=== PATIENT | male | born 1960 | race Caucasian/White ===

== ENCOUNTER 2020-09-21 07:30 | Outpatient (CLI) | payer OTHER ==
[2020-09-21 14:44] LABS: BASOPHILS # (AUTO) 0.1 10^3/uL (0.0-0.1); BASOPHILS % (AUTO) 1.2 %; EOSINOPHILS # (AUTO) 0.2 10^3/uL (0.0-0.7); EOSINOPHILS % (AUTO) 4.1 %; HCT - HEMATOCRIT 45.4 % (42.0-52.0); HGB - HEMOGLOBIN 14.9 g/dL (14.0-18.0); LYMPHOCYTES # (AUTO) 1.6 10^3/uL (1.5-3.5); LYMPHOCYTES % (AUTO) 26.4 %; MEAN CORPUSCULAR HEMOGLOBIN 30.4 pg (27.0-31.0); MEAN CORPUSCULAR HGB CONC 32.8 g/dL (32.0-36.0); MEAN CORPUSCULAR VOLUME 92.7 fL (80.0-94.0); MEAN PLATELET VOLUME 10.6 fL (7.4-11.4); MONOCYTES # (AUTO) 0.7 10^3/uL (0.0-1.0); MONOCYTES % (AUTO) 11.5 %; NEUTROPHILS # (AUTO) 3.4 10^3/uL (1.5-6.6); NEUTROPHILS % (AUTO) 56.5 %; PLT - PLATELET COUNT 236 10^3/uL (130-450); RED CELL DISTRIBUTION WIDTH 14.3 % (12.0-15.0); WHITE BLOOD COUNT 5.9 x10^3/uL (4.8-10.8)
[2020-09-21 15:35] LABS: ALBUMIN 4.4 g/dL (3.2-5.5); ALBUMIN/GLOBULIN RATIO 1.6 (1.0-2.2); ALKALINE PHOSPHATASE 54 IU/L (42-121); ALT ALANINE AMINOTRANSFERASE 54 IU/L (10-60); AST ASPARTATE AMINOTRANSFERASE 32 IU/L (10-42); BILIRUBIN,TOTAL 0.5 mg/dL (0.2-1.0); BUN - BLOOD UREA NITROGEN 20 mg/dL (6-20); CALCIUM 9.7 mg/dL (8.5-10.3); CARBON DIOXIDE - CO2 26 mmol/L (21-32); CHLORIDE 105 mmol/L (101-111); CHOL/HDL RATIO 2.5 (<5.0); CHOLESTEROL 181 mg/dL; CREATININE 0.8 mg/dL (0.6-1.2); GFR - MDRD 99 (>89); GLUCOSE 106 mg/dL (70-100); HDL CHOLESTEROL 73 mg/dL; LDL CHOLESTEROL,CALCULATED 94 mg/dL; LDL/HDL RATIO 1.3 (<3.6); POTASSIUM 4.6 mmol/L (3.5-5.0); SODIUM 141 mmol/L (135-145); TOTAL PROTEIN 7.1 g/dL (6.7-8.2); TRIGLYCERIDES 69 mg/dL; VLDL CHOLESTEROL 14 mg/dL
== END 2020-09-21 07:31 | disposition home or self-care (01) ==
LOC: LAB.S 07:30
PROVIDERS: ATTEND Internal Medicine
DX: Z00.00 Encounter for general adult medical examination without abnormal findings (principal); Z12.5 Encounter for screening for malignant neoplasm of prostate
CPT/HCPCS: 36415; 80053; 80061; 83721; 84153; 85025

== ENCOUNTER 2020-11-10 18:25 | Outpatient (CLI) | payer OTHER | END 2020-11-10 18:26 | disposition critical access hospital (66) | LOC: EMS 18:25 | DX: R55 Syncope and collapse (principal); R11.2 Nausea with vomiting, unspecified | CPT/HCPCS: A0425; A0427 ==

== ENCOUNTER 2020-11-10 18:50 | Emergency (ER) | payer OTHER ==
[2020-11-10 19:26] LABS: BASOPHILS # (AUTO) 0.1 10^3/uL (0.0-0.1); BASOPHILS % (AUTO) 0.4 %; EOSINOPHILS # (AUTO) 0.1 10^3/uL (0.0-0.7); EOSINOPHILS % (AUTO) 0.4 %; HCT - HEMATOCRIT 45.3 % (42.0-52.0); HGB - HEMOGLOBIN 15.1 g/dL (14.0-18.0); LYMPHOCYTES # (AUTO) 0.6 10^3/uL (1.5-3.5); LYMPHOCYTES % (AUTO) 4.8 %; MEAN CORPUSCULAR HEMOGLOBIN 30.9 pg (27.0-31.0); MEAN CORPUSCULAR HGB CONC 33.3 g/dL (32.0-36.0); MEAN CORPUSCULAR VOLUME 92.8 fL (80.0-94.0); MEAN PLATELET VOLUME 9.6 fL (7.4-11.4); MONOCYTES # (AUTO) 0.9 10^3/uL (0.0-1.0); NEUTROPHILS % (AUTO) 86.1 %; PLT - PLATELET COUNT 225 10^3/uL (130-450); RED BLOOD COUNT 4.88 10^6/uL (4.70-6.10); RED CELL DISTRIBUTION WIDTH 14.5 % (12.0-15.0); WHITE BLOOD COUNT 11.6 x10^3/uL (4.8-10.8)
--- NOTE | 2020-11-10 19:29 | XRAY Report ---
PROCEDURE: Chest 1 View X-Ray INDICATIONS: Chest Pain TECHNIQUE: One view of the chest was acquired. COMPARISON: None. FINDINGS: Surgical changes and devices: None. Lungs and pleura: No pleural effusions or pneumothorax. Lungs are clear. Mediastinum: Mediastinal contours appear normal. Heart size is normal. Bones and chest wall: No suspicious bony lesions. Overlying soft tissues appear unremarkable. IMPRESSION: No acute cardiopulmonary disease. Reviewed by: Sushila Gil MD on 11/10/2020 7:27 PM PDT Approved by: Sushila Gil MD on 11/10/2020 7:27 PM PDT Station ID: [id number]
[2020-11-10 19:42] LABS: ALBUMIN 4.2 g/dL (3.2-5.5); ALBUMIN/GLOBULIN RATIO 1.5 (1.0-2.2); BILIRUBIN,TOTAL 0.7 mg/dL (0.2-1.0); CREATININE 1.1 mg/dL (0.6-1.2); POTASSIUM 3.6 mmol/L (3.5-5.0)
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
[2020-11-10 20:38] VITALS: BP 115/73
--- NOTE | 2020-11-11 05:41 | ED Physician Documentation ---
PD HPI SYNCOPE - Stated complaint Stated Complaint: SYNCOPE - Chief complaint Chief Complaint: Allergic Rx - History obtained from History obtained from: Patient - History of Present Illness Witnessed: Witnessed Timing - onset: Enter time (17:00) Duration: Seconds Preceding symptoms: Diaphoresis, Light headed Injury occurred: None. No: Fell Pain level max: 0 Pain level now: 0 Recently seen: Clinic - Additional information Additional information: BIBA for syncope. Patient was prescribed amoxicillin by PMD for sinusitis, took first dose at 2 PM today. approximately 2-3 hours later, he felt flushed, diaphoretic, lightheaded, developed nausea and vomiting. He then had brief syncope, estimates he was unconscious for "a few seconds" (per patient), but did not fall to ground and thus no injury. He was given IV fluids and zofran en route by EMS and feels much improved by the time of this evaluation. Review of Systems Constitutional: reports: Sweats. denies: Fever, Chills Nose: reports: Congestion, Sinus pressure / pain Throat: denies: Sore throat Cardiac: reports: Reviewed and negative Respiratory: reports: Reviewed and negative GI: reports: Nausea, Vomiting. denies: Abdominal Pain : denies: Dysuria, Frequency, Incontinent Musculoskeletal: reports: Reviewed and negative Neurologic: reports: Syncope. denies: Focal weakness, Numbness, Headache, Head injury PD PAST MEDICAL HISTORY - Past Medical History Cardiovascular: Hypertension, High cholesterol - Present Medications Home Medications: Ambulatory Orders Medication Instructions Recorded Confirmed Lisinopril [Zestril] 1 tab PO DAILY 11/10/20 11/10/20 Rosuvastatin Calcium [Ezallor 1 tab PO DAILY 11/10/20 11/10/20 Sprinkle] Tamsulosin [Flomax] 1 tab PO DAILY 11/10/20 11/10/20 - Allergies Allergies/Adverse Reactions: Allergies Allergy/AdvReac Type Severity Reaction Status Date / Time amoxicillin Allergy Diaphoresis Verified 11/10/20 19:13 - Social History Does the pt smoke?: No Smoking Status: Never smoker Does the pt drink ETOH?: Yes Does the pt have substance abuse?: No PD ED PE NORMAL - Vitals Vital signs reviewed: Yes - General General: Alert and oriented X 3, No acute distress, Well developed/nourished - HEENT HEENT: PERRL, EOMI, Moist mucous membranes - Neck Neck: Supple, no meningeal sign - Cardiac Cardiac: RRR, No murmur, No gallop, No rub - Respiratory Respiratory: No respiratory distress, Clear bilaterally - Abdomen Abdomen: Soft, Non tender - Derm Derm: Normal color, Warm and dry - Extremities Extremities: No edema - Neuro Neuro: Alert and oriented X 3, shade matcher 2-12 intact, No motor deficit, No sensory deficit, Normal speech Eye Opening: Spontaneous Motor: Obeys Commands Verbal: Oriented GCS Score: 15 - Psych Psych: Normal mood, Normal affect Results - Vitals Vitals: Vital Signs - 24 hr 11/10/20 11/10/20 11/10/20 18:51 19:32 20:37 Temperature 35.9 C L 97.5 C H 36.4 C L Heart Rate 75 77 72 Respiratory 18 18 18 Rate Blood Pressure 96/70 111/74 115/73 O2 Saturation 94 97 99 Oxygen O2 Source Room air - EKG (time done) No standard instances Rate: Rate (enter#) (71) Rhythm: NSR [place]: LAD Intervals: Normal DE QRS: Normal Ischemia: Normal ST segments, Q waves (III, aVF) - Labs Labs: Laboratory Tests 11/10/20 11/10/20 11/10/20 19:22 19:22 19:22 WBC 11.6 H RBC 4.88 Hgb 15.1 Hct 45.3 MCV 92.8 MCH 30.9 MCHC 33.3 RDW 14.5 Plt Count 225 MPV 9.6 Neut # (Auto) 10.0 H Lymph # (Auto) 0.6 L [place] # (Auto) 0.9 Eos # (Auto) 0.1 Baso # (Auto) 0.1 Absolute Nucleated RBC 0.00 Nucleated RBC % 0.0 Sodium 140 Potassium 3.6 Chloride 105 Carbon Dioxide 22 Anion Gap 13.0 BUN 21 H Creatinine 1.1 Estimated GFR (MDRD) 68 L Glucose 120 H Calcium 9.0 Total Bilirubin 0.7 AST 28 ALT 41 Alkaline Phosphatase 55 Troponin I High Sens B-Natriuretic Peptide 36 Total Protein 7.0 Albumin 4.2 Globulin 2.8 Albumin/Globulin Ratio 1.5 Lipase 27 11/10/20 19:22 WBC RBC Hgb Hct MCV MCH MCHC RDW Plt Count MPV Neut # (Auto) Lymph # (Auto) [place] # (Auto) Eos # (Auto) Baso # (Auto) Absolute Nucleated RBC Nucleated RBC % Sodium Potassium Chloride Carbon Dioxide Anion Gap BUN Creatinine Estimated GFR (MDRD) Glucose Calcium Total Bilirubin AST ALT Alkaline Phosphatase Troponin I High Sens 4.9 B-Natriuretic Peptide Total Protein Albumin Globulin Albumin/Globulin Ratio Lipase - Rads (name of study) cxr Radiology: Prelim report reviewed, See rad report PD MEDICAL DECISION MAKING - ED course Complexity details: reviewed results, re-evaluated patient, considered di fferential, d/w patient ED course: test results reassuring and nondiagnostic; reviewed results with patient. he feels well/asymptomatic, is comfortable with d/c home. We discussed option for different antibiotic for sinusitis, but patient wants to hold off on any replacement antibiotic until he speaks with his PMD this coming week. He will not take the amoxicillin any more Departure - Departure Disposition: 01 Home, Self Care Clinical Impression: Syncope Qualifiers: Syncope type: unspecified Qualified Code(s): R55 - Syncope and collapse Condition: Good Instructions: ED Syncope Vasovagal Follow-Up: Charles Manley MD [Primary Care Provider] - Discharge Date/Time: 11/10/20 20:37
== END 2020-11-10 20:37 | disposition home or self-care (01) ==
LOC: EDUNIT# → SUPCPDRO 18:50 → ED 18:50
DX: R55 Syncope and collapse (principal); R11.2 Nausea with vomiting, unspecified; J32.9 Chronic sinusitis, unspecified; Z88.0 Allergy status to penicillin; I10 Essential (primary) hypertension
CPT/HCPCS: 36415; 80053; 83690; 83880; 84484; 85025; 93005; 99284

== ENCOUNTER 2021-02-07 08:00 | Outpatient (CLI) | payer OTHER ==
[2021-02-07 16:07] LABS: FECAL OCCULT BLOOD (FIT) NEGATIVE (NEGATIVE)
== END 2021-02-07 23:59 | disposition home or self-care (01) ==
LOC: LAB.S 08:00
PROVIDERS: ATTEND Physician Assistant
DX: R19.7 Diarrhea, unspecified (principal)
CPT/HCPCS: 81599; 82274; 87045; 87427; 87449; 87493

== ENCOUNTER 2021-03-18 08:55 | Outpatient (CLI) | payer OTHER ==
[2021-03-18 14:11] LABS: BASOPHILS # (AUTO) 0.1 10^3/uL (0.0-0.1); EOSINOPHILS # (AUTO) 0.2 10^3/uL (0.0-0.7); EOSINOPHILS % (AUTO) 3.3 %; HCT - HEMATOCRIT 46.4 % (42.0-52.0); HGB - HEMOGLOBIN 15.1 g/dL (14.0-18.0); LYMPHOCYTES # (AUTO) 1.9 10^3/uL (1.5-3.5); LYMPHOCYTES % (AUTO) 25.7 %; MEAN CORPUSCULAR HEMOGLOBIN 30.3 pg (27.0-31.0); MEAN CORPUSCULAR HGB CONC 32.5 g/dL (32.0-36.0); MEAN PLATELET VOLUME 10.6 fL (7.4-11.4); MONOCYTES # (AUTO) 0.8 10^3/uL (0.0-1.0); MONOCYTES % (AUTO) 10.9 %; NEUTROPHILS # (AUTO) 4.3 10^3/uL (1.5-6.6); NEUTROPHILS % (AUTO) 58.7 %; PLT - PLATELET COUNT 249 10^3/uL (130-450); RED BLOOD COUNT 4.99 10^6/uL (4.70-6.10); RED CELL DISTRIBUTION WIDTH 13.8 % (12.0-15.0); WHITE BLOOD COUNT 7.3 x10^3/uL (4.8-10.8)
[2021-03-18 15:00] LABS: ALBUMIN 4.5 g/dL (3.2-5.5); ALBUMIN/GLOBULIN RATIO 1.7 (1.0-2.2); ALKALINE PHOSPHATASE 51 IU/L (42-121); ALT ALANINE AMINOTRANSFERASE 45 IU/L (10-60); AST ASPARTATE AMINOTRANSFERASE 26 IU/L (10-42); BILIRUBIN,TOTAL 1.1 mg/dL (0.2-1.0); BUN - BLOOD UREA NITROGEN 22 mg/dL (6-20); CALCIUM 9.7 mg/dL (8.5-10.3); CARBON DIOXIDE - CO2 28 mmol/L (21-32); CHLORIDE 100 mmol/L (101-111); CHOL/HDL RATIO 2.8 (<5.0); CHOLESTEROL 193 mg/dL; CREATININE 0.9 mg/dL (0.6-1.2); GFR - MDRD 86 (>89); GLUCOSE 108 mg/dL (70-100); HDL CHOLESTEROL 69 mg/dL; LDL CHOLESTEROL,CALCULATED 109 mg/dL; LDL/HDL RATIO 1.6 (<3.6); POTASSIUM 4.3 mmol/L (3.5-5.0); SODIUM 136 mmol/L (135-145); TOTAL PROTEIN 7.2 g/dL (6.7-8.2); TRIGLYCERIDES 76 mg/dL; VLDL CHOLESTEROL 15 mg/dL
== END 2021-03-18 08:56 | disposition home or self-care (01) ==
LOC: LAB.S 08:55
PROVIDERS: ATTEND Internal Medicine
DX: I10 Essential (primary) hypertension (principal)
CPT/HCPCS: 36415; 80053; 80061; 83721; 85025

== ENCOUNTER 2021-06-24 07:35 | Outpatient (CLI) | payer OTHER ==
[2021-06-24 14:30] LABS: BASOPHILS # (AUTO) 0.1 10^3/uL (0.0-0.1); BASOPHILS % (AUTO) 1.5 %; EOSINOPHILS # (AUTO) 0.5 10^3/uL (0.0-0.7); EOSINOPHILS % (AUTO) 7.6 %; HGB - HEMOGLOBIN 15.1 g/dL (14.0-18.0); LYMPHOCYTES # (AUTO) 1.7 10^3/uL (1.5-3.5); LYMPHOCYTES % (AUTO) 23.7 %; MEAN CORPUSCULAR HEMOGLOBIN 29.9 pg (27.0-31.0); MEAN CORPUSCULAR HGB CONC 32.8 g/dL (32.0-36.0); MEAN CORPUSCULAR VOLUME 91.1 fL (80.0-94.0); MONOCYTES # (AUTO) 0.8 10^3/uL (0.0-1.0); MONOCYTES % (AUTO) 10.8 %; PLT - PLATELET COUNT 239 10^3/uL (130-450); RED BLOOD COUNT 5.05 10^6/uL (4.70-6.10); RED CELL DISTRIBUTION WIDTH 14.1 % (12.0-15.0); WHITE BLOOD COUNT 7.1 x10^3/uL (4.8-10.8)
[2021-06-24 15:18] LABS: ALBUMIN 4.3 g/dL (3.2-5.5); ALBUMIN/GLOBULIN RATIO 1.4 (1.0-2.2); ALKALINE PHOSPHATASE 54 IU/L (42-121); ALT ALANINE AMINOTRANSFERASE 48 IU/L (10-60); AST ASPARTATE AMINOTRANSFERASE 31 IU/L (10-42); BILIRUBIN,TOTAL 0.9 mg/dL (0.2-1.0); BUN - BLOOD UREA NITROGEN 16 mg/dL (6-20); CALCIUM 9.5 mg/dL (8.5-10.3); CARBON DIOXIDE - CO2 26 mmol/L (21-32); CHLORIDE 98 mmol/L (101-111); CHOL/HDL RATIO 2.7 (<5.0); CHOLESTEROL 187 mg/dL; CREATININE 0.8 mg/dL (0.6-1.2); GFR - MDRD 98 (>89); GLUCOSE 116 mg/dL (70-100); HDL CHOLESTEROL 69 mg/dL; LDL CHOLESTEROL,CALCULATED 95 mg/dL; LDL/HDL RATIO 1.4 (<3.6); POTASSIUM 4.3 mmol/L (3.5-5.0); SODIUM 134 mmol/L (135-145); TOTAL PROTEIN 7.3 g/dL (6.7-8.2); TRIGLYCERIDES 114 mg/dL; VLDL CHOLESTEROL 23 mg/dL
== END 2021-06-24 07:36 | disposition home or self-care (01) ==
LOC: LAB.S 07:35
PROVIDERS: ATTEND Internal Medicine
DX: I10 Essential (primary) hypertension (principal); Z12.5 Encounter for screening for malignant neoplasm of prostate
CPT/HCPCS: 36415; 80053; 80061; 83721; 84153; 85025

== ENCOUNTER 2022-05-19 07:18 | Outpatient (CLI) | payer OTHER ==
[2022-05-19 13:53] LABS: BASOPHILS # (AUTO) 0.1 10^3/uL (0.0-0.1); EOSINOPHILS # (AUTO) 0.3 10^3/uL (0.0-0.7); EOSINOPHILS % (AUTO) 4.2 %; HCT - HEMATOCRIT 46.8 % (42.0-52.0); LYMPHOCYTES # (AUTO) 2.2 10^3/uL (1.5-3.5); LYMPHOCYTES % (AUTO) 27.6 %; MEAN CORPUSCULAR HEMOGLOBIN 29.5 pg (27.0-31.0); MEAN CORPUSCULAR HGB CONC 32.1 g/dL (32.0-36.0); MEAN CORPUSCULAR VOLUME 92.1 fL (80.0-94.0); MEAN PLATELET VOLUME 10.5 fL (7.4-11.4); MONOCYTES # (AUTO) 0.8 10^3/uL (0.0-1.0); MONOCYTES % (AUTO) 9.4 %; NEUTROPHILS # (AUTO) 4.6 10^3/uL (1.5-6.6); NEUTROPHILS % (AUTO) 57.4 %; PLT - PLATELET COUNT 255 10^3/uL (130-450); RED BLOOD COUNT 5.08 10^6/uL (4.70-6.10); RED CELL DISTRIBUTION WIDTH 14.1 % (12.0-15.0); WHITE BLOOD COUNT 8.1 x10^3/uL (4.8-10.8)
[2022-05-19 14:01] LABS: ALBUMIN 4.1 g/dL (3.2-5.5); ALBUMIN/GLOBULIN RATIO 1.4 (1.0-2.2); ALKALINE PHOSPHATASE 56 IU/L (42-121); ALT ALANINE AMINOTRANSFERASE 42 IU/L (10-60); AST ASPARTATE AMINOTRANSFERASE 25 IU/L (10-42); BILIRUBIN,TOTAL 0.7 mg/dL (0.2-1.0); BUN - BLOOD UREA NITROGEN 23 mg/dL (6-20); CALCIUM 9.5 mg/dL (8.5-10.3); CARBON DIOXIDE - CO2 28 mmol/L (21-32); CHLORIDE 100 mmol/L (101-111); CHOL/HDL RATIO 2.6 (<5.0); CHOLESTEROL 166 mg/dL; CREATININE 0.9 mg/dL (0.6-1.2); GFR - MDRD 86 (>89); GLUCOSE 120 mg/dL (70-100); HDL CHOLESTEROL 63 mg/dL; LDL CHOLESTEROL,CALCULATED 83 mg/dL; LDL/HDL RATIO 1.3 (<3.6); POTASSIUM 4.3 mmol/L (3.5-5.0); SODIUM 136 mmol/L (135-145); TOTAL PROTEIN 7.1 g/dL (6.7-8.2); TRIGLYCERIDES 100 mg/dL; VLDL CHOLESTEROL 20 mg/dL
[2022-05-19 14:12] LABS: THYROID STIMULATING HORMONE 4.49 uIU/mL (0.34-5.60)
== END 2022-05-19 07:19 | disposition home or self-care (01) ==
LOC: LAB.S 07:18
PROVIDERS: ATTEND Physician Assistant
DX: I10 Essential (primary) hypertension (principal); E78.5 Hyperlipidemia, unspecified; Z12.5 Encounter for screening for malignant neoplasm of prostate
CPT/HCPCS: 36415; 80053; 80061; 83721; 84153; 84443; 85025

== ENCOUNTER 2022-07-03 07:53 | Outpatient (CLI) | payer OTHER ==
--- NOTE | 2022-07-03 10:02 | MRI Report ---
PROCEDURE: BRAIN WO INDICATIONS: CLUSTER HEADACHE TECHNIQUE: Noncontrast axial T1 spin echo, axial T2 fast spin echo, sagittal and axial FLAIR, coronal T2 fast sp in echo, axial gradient echo, axial diffusion and ADC through the brain. COMPARISON: None. FINDINGS: Image quality: Excellent. CSF Spaces: Basal cisterns are patent. No extra-axial fluid collections. Ventricles are normal in size and shape. Brain: No intracranial masses or hemorrhage. Simpson/white matter interface is normal. There is mild diffuse cerebral volume loss. Minimal degree of patchy high FLAIR signal within the periventricular w randall matter. Brainstem appears normal. Diffusion-weighted images demonstrate no acute ischemic insul t. No chronic ischemic insults. Normal intravascular flow voids are present. Skull and face: Calvarium has normal marrow signal. Orbits appear normal. Sinuses: There is near complete opacification of the right frontal sinus. Mild bilateral maxillary si nus mucosal thickening. IMPRESSION: 1. Mild volume loss. Minimal small vessel disease. 2. Sinus disease. 3. No acute process. No recent infarct. Reviewed by: Jacquelin Perkins MD on 07/03/2022 10:00 AM [facility] Approved by: Jacquelin Perkins MD on 07/03/2022 10:00 AM [facility] Station ID: [id number]
== END 2022-07-03 07:54 | disposition home or self-care (01) ==
LOC: DI 07:53
PROVIDERS: ATTEND Physician Assistant
DX: G44.009 Cluster headache syndrome, unspecified, not intractable (principal); G31.89 Other specified degenerative diseases of nervous system; I67.89 Other cerebrovascular disease

== ENCOUNTER 2022-10-05 08:35 | Emergency (ER) | payer OTHER ==
[2022-10-05] MEDS ORDERED: ONDANSETRON 4 MG/2 ML VIAL IVP STA (08:51)
[2022-10-05] MEDS ORDERED: SODIUM CHLORIDE 0.9% 1,000 ML IV STA (08:51)
[2022-10-05 09:21] LABS: BASOPHILS # (AUTO) 0.1 10^3/uL (0.0-0.1); BASOPHILS % (AUTO) 0.7 %; EOSINOPHILS # (AUTO) 0.1 10^3/uL (0.0-0.7); EOSINOPHILS % (AUTO) 1.6 %; HCT - HEMATOCRIT 41.6 % (42.0-52.0); HGB - HEMOGLOBIN 13.8 g/dL (14.0-18.0); LYMPHOCYTES # (AUTO) 1.3 10^3/uL (1.5-3.5); LYMPHOCYTES % (AUTO) 15.1 %; MEAN CORPUSCULAR HEMOGLOBIN 29.6 pg (27.0-31.0); MEAN CORPUSCULAR HGB CONC 33.2 g/dL (32.0-36.0); MEAN CORPUSCULAR VOLUME 89.1 fL (80.0-94.0); MEAN PLATELET VOLUME 9.9 fL (7.4-11.4); MONOCYTES % (AUTO) 11.5 %; NEUTROPHILS # (AUTO) 5.9 10^3/uL (1.5-6.6); NEUTROPHILS % (AUTO) 70.9 %; PLT - PLATELET COUNT 228 10^3/uL (130-450); RED BLOOD COUNT 4.67 10^6/uL (4.70-6.10); RED CELL DISTRIBUTION WIDTH 13.7 % (12.0-15.0); WHITE BLOOD COUNT 8.3 x10^3/uL (4.8-10.8)
--- NOTE | 2022-10-05 09:22 | CT Report ---
PROCEDURE: HEAD WO INDICATIONS: syncope, collapse, hit head TECHNIQUE: Noncontrast 4.5 mm thick angled axial sections acquired from the foramen magnum to the vertex. For r adiation dose reduction, the following was used: automated exposure control, adjustment of mA and/or kV according to patient size. COMPARISON: MRI brain 07/03/2022 FINDINGS: Image quality: Excellent. CSF spaces: Basal cisterns are patent. No extra-axial fluid collections. Ventricles are normal in size and shape. Brain: No midline shift. No intracranial masses or hemorrhage. Simpson-white matter interface is norm al. Skull and face: Calvarium and visualized facial bones are intact, without suspicious lesions. Sinuses: Visualized sinuses and mastoids are clear. IMPRESSION: 1. No acute intracranial process. Reviewed by: Elizabeth Haider MD on 10/05/2022 9:20 AM PDT Approved by: Elizabeth Haider MD on 10/05/2022 9:20 AM PDT Station ID: [id number]
[2022-10-05 09:35] LABS: ALBUMIN 4.1 g/dL (3.2-5.5); ALBUMIN/GLOBULIN RATIO 1.5 (1.0-2.2); BILIRUBIN,TOTAL 0.5 mg/dL (0.2-1.0); CALCIUM 9.3 mg/dL (8.5-10.3); CREATININE 0.9 mg/dL (0.6-1.2); POTASSIUM 4.3 mmol/L (3.5-5.0); TOTAL PROTEIN 6.8 g/dL (6.7-8.2)
--- NOTE | 2022-10-05 10:03 | ED Physician Documentation ---
History of Present Illness - Stated complaint Stated Complaint: GLF - Chief complaint Chief Complaint: Neuro - History obtained from History obtained from: Patient - Additonal information Additional information: The patient comes to the emergency department with chief complaint of left foot and ankle pain after a syncopal episode and fall last night. He states he got up around 1:00 this morning and had severe cramps in both of his thighs. He states he was trying to massage the cramps out but then became lightheaded and fainted, he believes because of the intensity of the cramping. The patient believes he hit his forehead on the door jam next to him. His was there and states she noticed that his left foot seem to be twisted into an odd position. 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 He states he went to bed feeling fairly fine, but was a bit tired. The patient states he has had syncopal episodes previously when he has had pain, once from a stomachache while on antibiotics and once from another time when he operated an excavator and developed severe leg cramps. The patient states his cramps feel fine now and that he really has not had any other complaints except that he is having pain, swelling, and bruising around his left ankle and also pain in the heel and ball of his left foot. He states it hurts enough that he is having difficulty bearing weight. He borrowed a pair of crutches from his neighbor to come here. No prior injury to the foot or ankle. No other complaints at this time. He is not anticoagulated. PD PAST MEDICAL HISTORY - Past Medical History Cardiovascular: Hypertension, High cholesterol - Present Medications Home Medications: Ambulatory Orders Medication Instructions Recorded Confirmed Lisinopril [Zestril] 1 tab PO DAILY 11/10/20 11/10/20 Rosuvastatin Calcium [Ezallor 1 tab PO DAILY 11/10/20 11/10/20 Sprinkle] Tamsulosin [Flomax] 1 tab PO DAILY 11/10/20 11/10/20 - Allergies Allergies/Adverse Reactions: Allergies Allergy/AdvReac Type Severity Reaction Status Date / Time amoxicillin Allergy Diaphoresis Verified 10/05/22 08:40 - Social History Does the pt smoke?: No Smoking Status: Never smoker Does the pt drink ETOH?: Yes Does the pt have substance abuse?: No PD ED PE NORMAL - Vitals Vital signs reviewed: Yes - General General: Alert and oriented X 3, No acute distress, Well developed/nourished - HEENT HEENT: PERRL, EOMI, Moist mucous membranes, Other (2.5 cm vertical abrasion patient's midline forehead without bony deformity or edema.) - Neck Neck: Supple, no meningeal sign, No bony TTP - Cardiac Cardiac: RRR, No murmur - Respiratory Respiratory: No respiratory distress, Clear bilaterally - Abdomen Abdomen: Soft, Non tender, Non distended - Derm Derm: Warm and dry, No rash, Other (Contusion over left ankle and foot as above.) - Extremities Extremities: No deformity, Other (Mild edema with moderate contusion surrounding left lateral malleolus and extending for about a 2.5 cm radius. Tenderness over talofibular ligament area. No deformity. Mild contusion over fourth toe dorsum without deformity or tenderness.) - Neuro Neuro: Alert and oriented X 3, No motor deficit, No sensory deficit - Psych Psych: Normal mood, Normal affect Results - Vitals Vitals: Oxygen O2 Source Room air - EKG (time done) 0850 EKG releavant findings:: EKG personally interpreted by author of this note. Relevant findings are: Rate: Rate (enter#) (89) Rhythm: NSR [place]: Normal Intervals: Normal RI Ischemia: Normal ST segments, Other (old infarct) Computer interpretation: Agree with computer - Labs Labs: Laboratory Tests 10/05/22 10/05/22 10/05/22 09:15 09:15 09:15 WBC 8.3 RBC 4.67 L Hgb 13.8 L Hct 41.6 L MCV 89.1 MCH 29.6 MCHC 33.2 RDW 13.7 Plt Count 228 MPV 9.9 Neut # (Auto) 5.9 Lymph # (Auto) 1.3 L [place] # (Auto) 1.0 Eos # (Auto) 0.1 Baso # (Auto) 0.1 Absolute Nucleated RBC 0.00 Nucleated RBC % 0.0 Sodium 135 Potassium 4.3 Chloride 101 Carbon Dioxide 25 Anion Gap 9.0 BUN 21 H Creatinine 0.9 Estimated GFR (MDRD) 86 L Glucose 109 H Calcium 9.3 Total Bilirubin 0.5 AST 26 ALT 38 Alkaline Phosphatase 47 Troponin I High Sens 3.4 Total Protein 6.8 Albumin 4.1 Globulin 2.7 Albumin/Globulin Ratio 1.5 Lipase 37 - Rads (name of study) CT head Relevant Findings:: Final report received, See rad report (nad) XR foot Relevant Findings:: Final report received, See rad report (neg) xr ankle Relevant Findings:: Final report received, See rad report (neg) PD Medical Decision Making - ED course Complexity details: reviewed results, re-evaluated patient, considered differential, d/w patient ED course: The patient was worked up with CT scan of the head, EKG, and labs. Head CT was negative by radiology interpretation. EKG was unremarkable for acute findings by my interpretation and patient was found to be in normal sinus rhythm. CBC and ER abdominal panel, as well as troponin, were ordered and reviewed by me, and unremarkable. Patient was sent for x-rays of the left ankle and foot, which were negative. The pt was fitted with crutches and an air splint. We have discussed symptomatic management at home, as well as the usual indications for return. Departure - Departure Disposition: 01 Home, Self Care Clinical Impression: Left ankle sprain Qualifiers: Encounter type: initial encounter Involved ligament of ankle: unspecified ligament Qualified Code(s): S93.402A - Sprain of unspecified ligament of left ankle, initial encounter Episode of syncope Qualifiers: Syncope type: unspecified Qualified Code(s): R55 - Syncope and collapse Closed head injury Qualifiers: Encounter type: initial encounter Qualified Code(s): S09.90XA - Unspecified injury of head, initial encounter Condition: Stable Instructions: ED Sprain Ankle W X Ray, ED Head Injury Closed, ED Syncope Vasovagal Comments: Your CT, x-rays, and labs all look good. You have likely sprained your ankle, and can use the splint and crutches as long as you need them. You may bear weight as tolerated, but as we have discussed, should avoid any strenuous or high impact activity on your left ankle, or any walking on uneven ground, until you can walk on regular flat ground without any pain. Please be sure you get plenty of water to drink With regard to your fainting episode. If you need to operate an excavator again, you should be sure you are hydrating well afterward and perhaps an blind stretching and massage to help prevent the cramps. Discharge Date/Time: 10/05/22 11:28
--- NOTE | 2022-10-05 10:22 | XRAY Report ---
PROCEDURE: Ankle 3 View LT INDICATIONS: fall/injury/pain/swelling TECHNIQUE: 3 views of the ankle were acquired. COMPARISON: CT foot 10/05/2022 FINDINGS: Bones: No fractures or dislocations. Ankle mortise is normally aligned. No suspicious bony lesions . Soft tissues: No tibiotalar joint effusion. Achilles tendon appears normal. IMPRESSION: No visualized acute fracture or dislocation. However, occult injury cannot be excluded. Recommend leonides rt interval imaging follow-up in 7-10 days as clinically indicated for additional evaluation. Reviewed by: Elizabeth Haider MD on 10/05/2022 10:20 AM PDT Approved by: Elizabeth Haider MD on 10/05/2022 10:20 AM PDT Station ID: [id number]
--- NOTE | 2022-10-05 10:22 | XRAY Report ---
PROCEDURE: Foot 3 View LT INDICATIONS: fall/injury/pain TECHNIQUE: 3 views of the foot were acquired. COMPARISON: X-ray ankle 10/15/2022 FINDINGS: Bones: No fractures or dislocations. No suspicious bony lesions. Soft tissues: No suspicious soft tissue calcifications or masses. IMPRESSION: No visualized acute fracture or dislocation. However, occult injury cannot be excluded. Recommend leonides rt interval imaging follow-up in 7-10 days as clinically indicated for additional evaluation. Reviewed by: Elizabeth Haider MD on 10/05/2022 10:21 AM PDT Approved by: Elizabeth Haider MD on 10/05/2022 10:21 AM PDT Station ID: [id number]
[2022-10-05 11:16] VITALS: BP 156/91
== END 2022-10-05 11:28 | disposition home or self-care (01) ==
LOC: ED 08:35
DX: S93.402A Sprain of unspecified ligament of left ankle, initial encounter (principal); S09.90XA Unspecified injury of head, initial encounter; W19.XXXA Unspecified fall, initial encounter
CPT/HCPCS: 36415; 80053; 83690; 84484; 85025; 93005; 96374; 99283

== ENCOUNTER 2023-03-12 08:47 | Outpatient (CLI) | payer OTHER ==
[2023-03-12 14:27] LABS: BASOPHILS # (AUTO) 0.1 10^3/uL (0.0-0.1); BASOPHILS % (AUTO) 1.1 %; EOSINOPHILS # (AUTO) 0.3 10^3/uL (0.0-0.7); EOSINOPHILS % (AUTO) 3.2 %; HCT - HEMATOCRIT 43.9 % (42.0-52.0); HGB - HEMOGLOBIN 14.1 g/dL (14.0-18.0); LYMPHOCYTES # (AUTO) 1.9 10^3/uL (1.5-3.5); LYMPHOCYTES % (AUTO) 23.5 %; MEAN CORPUSCULAR HEMOGLOBIN 29.6 pg (27.0-31.0); MEAN CORPUSCULAR HGB CONC 32.1 g/dL (32.0-36.0); MEAN PLATELET VOLUME 10.7 fL (7.4-11.4); MONOCYTES # (AUTO) 0.8 10^3/uL (0.0-1.0); MONOCYTES % (AUTO) 10.1 %; NEUTROPHILS % (AUTO) 61.7 %; PLT - PLATELET COUNT 253 10^3/uL (130-450); RED BLOOD COUNT 4.77 10^6/uL (4.70-6.10); RED CELL DISTRIBUTION WIDTH 14.6 % (12.0-15.0); WHITE BLOOD COUNT 8.1 x10^3/uL (4.8-10.8)
[2023-03-12 14:47] LABS: ALBUMIN 4.5 g/dL (3.2-5.5); ALKALINE PHOSPHATASE 49 IU/L (42-121); ALT ALANINE AMINOTRANSFERASE 33 IU/L (10-60); AST ASPARTATE AMINOTRANSFERASE 24 IU/L (10-42); BILIRUBIN,TOTAL 0.6 mg/dL (0.2-1.0); BUN - BLOOD UREA NITROGEN 24 mg/dL (6-20); CALCIUM 9.6 mg/dL (8.5-10.3); CARBON DIOXIDE - CO2 29 mmol/L (21-32); CHLORIDE 105 mmol/L (101-111); CHOL/HDL RATIO 2.2 (<5.0); CHOLESTEROL 167 mg/dL; CREATININE 0.9 mg/dL (0.6-1.3); GFR - MDRD 85 (>89); GLUCOSE 107 mg/dL (74-104); HDL CHOLESTEROL 76 mg/dL; LDL CHOLESTEROL,CALCULATED 77 mg/dL; POTASSIUM 4.7 mmol/L (3.5-4.5); SODIUM 139 mmol/L (135-145); TOTAL PROTEIN 6.7 g/dL (6.4-8.9); TRIGLYCERIDES 70 mg/dL (48-352); VLDL CHOLESTEROL 14 mg/dL
== END 2023-03-12 08:48 | disposition home or self-care (01) ==
LOC: LAB.S 08:47
PROVIDERS: ATTEND Physician Assistant
DX: I10 Essential (primary) hypertension (principal); E78.5 Hyperlipidemia, unspecified; Z12.5 Encounter for screening for malignant neoplasm of prostate
CPT/HCPCS: 36415; 80053; 80061; 83721; 84153; 85025

== ENCOUNTER 2023-03-26 07:41 | Day surgery (SDC) | payer OTHER ==
[~2023-03-26 07:41] MED LIST: GLYCOPYRROLATE 1 MG/5 ML VIAL ONE; PROPOFOL 500 MG/50 ML 500 MG/50 ML VIAL ONE
[2023-03-26] MEDS ORDERED: LACTATED RINGERS 1,000 ML IV ONE ×2 (08:01→09:31)
--- NOTE | 2023-03-26 08:58 | ANESTHESIA ---
Pre-Anesthesia VS, & Labs - Diagnosis screening - Procedure colonoscopy Vital Signs: Temp Pulse Resp BP Pulse Ox O2 Flow Rate 36.2 C L 61 14 137/88 H 97 03/26/23 08:13 03/26/23 08:13 03/26/23 08:13 03/26/23 08:13 03/26/23 08:13 Height: 5 ft 7 in Weight (kg): 89.6 kg Body Mass Index: 30.9 BMI Classification: Obese - NPO >8 hours - Lab Results Lab results reviewed: Yes Home Medications and Allergies Home Medications: Ambulatory Orders LORazepam [Ativan] 1 tab PO HS 03/25/23 Lisinopril [Zestril] 40 tab PO DAILY 11/10/20 Rosuvastatin Calcium [Ezallor Sprinkle] 1 tab PO DAILY 11/10/20 Tamsulosin [Flomax] 1 tab PO DAILY 11/10/20 LORazepam [Ativan] 1 tab PO HS 03/25/23 Allergies/Adverse Reactions: Allergies Allergy/AdvReac Type Severity Reaction Status Date / Time amoxicillin Allergy Diaphoresis Verified 03/25/23 13:10 Anes History & Medical History - Anesthetic History Anesthesia Complications: reports: No previous complications Family history of Anesthesia Complications: Denies Family history of Malignant Hyperthermia: Denies - Medical History Cardiovascular: reports: Hypertension, High cholesterol, Coronary artery disease Pulmonary: reports: None Gastrointestinal: reports: Colon polyps Musculoskeletal: reports: None Endocrine/Autoimmune: reports: None Skin: reports: None Smoking Status: Never smoker Psychosocial: reports: Alcohol - Surgical History General: reports: Colonoscopy Eyes Ears Nose Throat (EENT): reports: Tonsil/Adenoidectomy Exam General: Alert, Oriented x3, Cooperative Dental: WNL Mouth Openin Fingerbreadth Neck Mobility: Normal Mallampati classification: II Thyromental Distance: 4-6 cm Respiratory: Lungs clear Cardiovascular: Regular rate Plan Anesthesia Type: General, MAC Consent for Procedure(s) Verified and Reviewed: Yes Code Status: Attempt Resuscitation ASA classification: 2-Mild systemic disease Is this case an emergency?: No
[2023-03-26 09:44] VITALS: BP 112/70; O2SAT 94
--- NOTE | 2023-03-26 09:51 | ANESTHESIA POST OP EVALUATION ---
Anesthesia Post Eval - Post Anesthesia Eval Vitals: Last Vital Signs Temp 36.2 C L 03/26/23 09:31 Pulse 67 03/26/23 09:40 Resp 18 03/26/23 09:40 BP 112/70 03/26/23 09:40 Pulse Ox 94 03/26/23 09:40 O2 Flow Rate CV Function Including HR & BP: Stable Pain Control: Satisfactory Nausea & Vomiting: Negative Mental Status: Baseline Respiratory Status: Airway Patent Hydration Status: Satisfactory Anesthesia Complications: None
== END 2023-03-26 07:42 | disposition home or self-care (01) ==
LOC: SDS 07:41
PROVIDERS: ATTEND Surgery
DX: Z12.11 Encounter for screening for malignant neoplasm of colon (principal); K57.30 Diverticulosis of large intestine without perforation or abscess without bleeding; E66.9 Obesity, unspecified; Z86.010 Personal history of colon polyps; Z68.30 Body mass index [BMI] 30.0-30.9, adult
CPT/HCPCS: 45378; J7120

== ENCOUNTER 2023-08-05 16:01 | Outpatient (CLI) | payer OTHER ==
--- NOTE | 2023-08-05 16:56 | XRAY Report ---
PROCEDURE: Shoulder 2+V RT INDICATIONS: RIGHT SHOULDER PAIN TECHNIQUE: 3 views of the shoulder were acquired. COMPARISON: None. FINDINGS: Bones: Moderate acromioclavicular and mild to moderate glenohumeral degenerative changes. Soft tissues: No suspicious calcifications. IMPRESSION: Moderate acromioclavicular and mild to moderate glenohumeral degenerative changes. If there is high c oncern for further derangement, consider MRI evaluation. Reviewed by: Neo Quinn MD on 08/05/2023 4:54 PM PST Approved by: Neo Quinn MD on 08/05/2023 4:54 PM PST Station ID: [id number]
== END 2023-08-05 16:02 | disposition home or self-care (01) ==
LOC: DI 16:01
PROVIDERS: ATTEND Physician Assistant
DX: M19.011 Primary osteoarthritis, right shoulder (principal)

== ENCOUNTER 2023-12-21 20:31 | Outpatient (CLI) | payer OTHER | END 2023-12-21 23:59 | disposition EMS.NT | LOC: EMS 20:31 | DX: R55 Syncope and collapse (principal) ==

== ENCOUNTER 2024-01-31 08:52 | Emergency (ER) | payer OTHER ==
[2024-01-31 09:33] VITALS: BP 164/80; O2SAT 97
[2024-01-31] MEDS: LIDOCAINE 1% 2 ML VIAL SUBQ STA (10:17)
--- NOTE | 2024-01-31 10:37 | ED Physician Documentation ---
History of Present Illness - Stated complaint Stated Complaint: HOOK IN LT RING FINGER - Chief complaint Chief Complaint: General - History obtained from History obtained from: Patient - History of Present Illness Pain level max: 3 Pain level now: 3 - Additonal information Additional information: 63-year-old male was fishing today when he caught a silver-salmon and accidentally hooked his left ring finger. Worse with movement, better with rest. He states it is a barbed hook but the gregoria has been crimped. Review of Systems Constitutional: denies: Fever PD PAST MEDICAL HISTORY - Past Medical History Past Medical History: Yes Cardiovascular: Hypertension, High cholesterol - Past Surgical History Past Surgical History: No - Present Medications Home Medications: Ambulatory Orders Medication Instructions Recorded Confirmed Lisinopril [Zestril] 40 tab PO DAILY 11/10/20 03/25/23 Rosuvastatin Calcium [Ezallor 1 tab PO DAILY 11/10/20 03/25/23 Sprinkle] Tamsulosin [Flomax] 1 tab PO DAILY 11/10/20 03/25/23 LORazepam [Ativan] 1 tab PO HS 03/25/23 03/25/23 - Allergies Allergies/Adverse Reactions: Allergies Allergy/AdvReac Type Severity Reaction Status Date / Time amoxicillin Allergy Diaphoresis Verified 01/31/24 09:16 - Social History Does the pt smoke?: No Smoking Status: Never smoker Does the pt drink ETOH?: Yes Does the pt have substance abuse?: No - Immunizations Immunizations are current?: No Immunizations: TDAP >10years/unknown PD ED PE NORMAL - Vitals Vital signs reviewed: Yes - General General: Alert and oriented X 3, No acute distress - HEENT HEENT: Moist mucous membranes - Derm Derm: Warm and dry - Extremities Extremities: Other ([place] to the dorsum of the left finger, mid phalanx, through and through. Does not involve the joint or tendon NVI) Results - Vitals Vitals: Vital Signs - 24 hr 01/31/24 09:12 Temperature 36.8 C Heart Rate 78 Respiratory 18 Rate Blood Pressure 164/80 H O2 Saturation 97 Oxygen O2 Source Room air Procedures - General procedure General procedure: 1% lidocaine was instilled around the fishhook, the gregoria was able to be pushed through the skin, the fishhook was then clipped on the posterior aspect. The remainder of the hook was then pulled through the skin. PD Medical Decision Making - ED course Complexity details: considered differential, d/w patient ED course: Patient with a fishhook in the dorsum of the left ring finger. This was removed. Tolerated well. Bacitracin applied. Wound care performed. Tetanus up-to-date. Wound care instructions given at bedside. Will hold off on antibiotics at this time, monitor for infection and will treat if becomes infected. Patient counseled regarding signs and symptoms for which I believe an d urgent re-evaluation would be necessary. Patient with good understanding of and agreement to plan and is comfortable going home at this time This document was made in part using voice recognition software. While efforts are made to proofread this document, sound alike and grammatical errors may occur. Departure - Departure Disposition: 01 Home, Self Care Clinical Impression: Fish hook in finger Condition: Good Instructions: ED Puncture Wound Fish Hook Removed Follow-Up: Diana Estrella PA-C [Primary Care Provider] - Comments: As we discussed your last tetanus shot was November 16, 2019. Please keep the wound clean. Please return if you notice redness, swelling or drainage from the wound. The fishhook was removed today. Forms: PCP List Discharge Date/Time: 01/31/24 10:57
[2024-01-31] MEDS: BACITRACIN ZINC OINT 1 PACKET TOP STA (10:51)
== END 2024-01-31 10:57 | disposition home or self-care (01) ==
LOC: ED 08:52
DX: S61.245A Puncture wound with foreign body of left ring finger without damage to nail, initial encounter (principal); W45.8XXA Other foreign body or object entering through skin, initial encounter; Y93.89 Activity, other specified
CPT/HCPCS: 99282; 99283; A9270